=== PATIENT | female | born 1990 | race Caucasian/White ===

== ENCOUNTER 2019-10-14 08:14 | Emergency (ER) | payer OTHER ==
[~2019-10-14] VITALS: Ht 172.7 cm; Wt 172.5 kg
[2019-10-14 08:37] VITALS: BP 178/120
--- NOTE | 2019-10-14 08:52 | NUR ---
[facility]
[2019-10-14] MEDS ORDERED: LISINOPRIL 20 MG TABLET ONE (09:14)
[2019-10-14 09:29] LABS: BASOPHILS # (AUTO) 0.02 x10^3/uL (0-0.1); BASOPHILS % (AUTO) 0 % (0-1); EOSINOPHILS # (AUTO) 0.16 x10^3/uL (0-0.4); EOSINOPHILS % (AUTO) 2 % (1-7); LYMPHOCYTES # (AUTO) 1.55 x10^3/uL (1-3.4); LYMPHOCYTES % (AUTO) 23 % (22-44); MD NO; MEAN CORPUSCULAR HEMOGLOBIN 28.9 pg (27.0-34.8); MEAN CORPUSCULAR HGB CONC 33.5 g/dL (32.4-35.8); MEAN CORPUSCULAR VOLUME 86.3 fL (80-100); MEAN PLATELET VOLUME 8.5 fL (7.4-10.4); MONOCYTES # (AUTO) 0.46 x10^3/uL (0.2-0.8); MONOCYTES % (AUTO) 7 % (2-9); NEUTROPHILS # (AUTO) 4.48 x10^3/uL (1.8-6.8); NEUTROPHILS % (AUTO) 67 % (42-75); PLATELET COUNT 302 x10^3/uL (130-400); RED BLOOD COUNT 4.92 x10^6/uL (3.82-5.3); RED CELL DISTRIBUTION WIDTH 14.1 % (9.6-15.2)
[2019-10-14] MEDS ORDERED: LISINOPRIL 20 MG TABLET PO ONE (09:30)
[2019-10-14 09:40] LABS: ALBUMIN 3.7 g/dL (3.4-5.0); ANION GAP 10 mmol/L (5-15); CALCIUM 9.2 mg/dL (8.5-10.1); CHLORIDE 107 mmol/L (98-107)
[2019-10-14 09:54] LABS: CREATININE 0.85 mg/dL (0.55-1.02)
== END 2019-10-14 10:32 | disposition home or self-care (01) ==
LOC: ED 10:00
DX: I10 Essential (primary) hypertension (principal)
CPT/HCPCS: 36415; 80048; 82040; 84443; 85025; 93005; 99284

== ENCOUNTER 2019-10-15 03:08 | Emergency (ER) | payer OTHER ==
[~2019-10-15] VITALS: Ht 172.7 cm; Wt 172.0 kg
--- NOTE | 2019-10-15 03:16 | NUR ---
JUST SEEN YESTERDAY AM, FOR HTN, STARTED HAVING CP/DISCOMFORT TONIGHT, WOKE HER UP OUT OF SLEEP
[2019-10-15] MEDS ORDERED: MAALOX/HYOSCYAMINE/LIDOCAINE 45 ML BTL PO ONE (03:30)
[2019-10-15] MEDS ORDERED: MAALOX/HYOSCYAMINE/LIDOCAINE 45 ML BTL ONE (03:32)
[2019-10-15 03:57] LABS: TROPONIN I < 0.015 ng/mL (0.000-0.045)
--- NOTE | 2019-10-15 04:02 | NUR ---
assumed care of pt, pt in nad at this time
[2019-10-15 04:08] VITALS: BP 119/65
--- NOTE | 2019-10-15 04:31 | NUR ---
Patient/Caregiver given discharge instructions and they have confirmed that they understand the instructions. Patient ambulatory with steady gait.
== END 2019-10-15 04:32 | disposition home or self-care (01) ==
LOC: ED 04:15
DX: R07.89 Other chest pain (principal); R91.8 Other nonspecific abnormal finding of lung field; I10 Essential (primary) hypertension
CPT/HCPCS: 36415; 71045; 84484; 93005; 99284

== ENCOUNTER 2019-10-27 14:57 | Emergency (ER) | payer OTHER ==
[~2019-10-27] VITALS: Ht 172.7 cm; Wt 166.4 kg
[2019-10-27 16:03] LABS: BASOPHILS # (AUTO) 0.04 x10^3/uL (0-0.1); BASOPHILS % (AUTO) 1 % (0-1); EOSINOPHILS # (AUTO) 0.13 x10^3/uL (0-0.4); EOSINOPHILS % (AUTO) 2 % (1-7); LYMPHOCYTES # (AUTO) 1.89 x10^3/uL (1-3.4); LYMPHOCYTES % (AUTO) 24 % (22-44); MD NO; MEAN CORPUSCULAR HEMOGLOBIN 28.6 pg (27.0-34.8); MEAN CORPUSCULAR HGB CONC 33.9 g/dL (32.4-35.8); MEAN CORPUSCULAR VOLUME 84.3 fL (80-100); MEAN PLATELET VOLUME 8.6 fL (7.4-10.4); MONOCYTES # (AUTO) 0.53 x10^3/uL (0.2-0.8); MONOCYTES % (AUTO) 7 % (2-9); NEUTROPHILS # (AUTO) 5.42 x10^3/uL (1.8-6.8); NEUTROPHILS % (AUTO) 68 % (42-75); PLATELET COUNT 309 x10^3/uL (130-400); RED BLOOD COUNT 5.09 x10^6/uL (3.82-5.3)
[2019-10-27 16:04] LABS: ALANINE AMINOTRANSFERASE 45 U/L (12-78); ALBUMIN 3.7 g/dL (3.4-5.0); ANION GAP 6 mmol/L (5-15); CALCIUM 9.3 mg/dL (8.5-10.1); CHLORIDE 108 mmol/L (98-107); CREATININE 1.05 mg/dL (0.55-1.02)
[2019-10-27 16:07] LABS: ALKALINE PHOSPHATASE 46 U/L (45-117); BILIRUBIN,TOTAL 0.4 mg/dL (0.2-1.0); HCT (SEDRATE) 42.9 % (34.6-47.8); TOTAL PROTEIN 7.9 g/dL (6.4-8.2)
[2019-10-27 16:18] VITALS: BP 122/69
== END 2019-10-27 16:56 | disposition home or self-care (01) ==
LOC: ED 15:12
DX: M79.632 Pain in left forearm (principal); R00.2 Palpitations; I10 Essential (primary) hypertension
CPT/HCPCS: 36415; 80053; 85025; 85651; 93005; 99284